=== PATIENT | female | born 1965 | race Caucasian/White ===

== ENCOUNTER → 2017-08-18 | Outpatient (CLI) | payer OTHER ==
[~2017-08-18] MED LIST: ACHD5005 PO; DULO60CA6 PO; EXEN10PE3 SQ; HYDR-34 PO; LEVO500T2 PO
--- NOTE | 2017-08-18 14:58 | Diagnostic Imaging Report ---
PROCEDURE: MRI lumbar spine. TECHNIQUE: Multiplanar, multisequence MRI of the lumbar spine was performed without contrast. INDICATION: Low back pain, low back injury. COMPARISON: No prior studies are available for comparison. FINDINGS: Curvature and alignment of the lumbar spine is normal. The vertebral body heights and marrow signal are normal. There is no compression fracture or geographic marrow lesion. Fairly normal height and signal intensity to the lumbar discs is seen apart from some degenerative disease in the lower thoracic spine as well as the L4-L5 level with some mild disc space narrowing and desiccation seen. L1-L2: No central canal or neuroforaminal stenosis is detected. L2-L3: Unremarkable. L3-L4: Unremarkable. L4-L5: There is minimal linear signal within the midline posterior annulus suggestive of annular tear. No focal disc protrusion is seen. There does appear to be some narrowing of the lateral recesses bilaterally. Neural foramina and central canal are patent. L5-S1: Central canal and neural foramina are widely patent. There is degenerative facet disease in the lower lumbar spine, greatest at L4-L5 and L5-S1 levels. Paraspinous tissues are unremarkable. IMPRESSION: Mild lower lumbar spondylosis and facet arthropathy with mild lateral recess narrowing bilaterally at the L4-L5 level as well as probable annular tear. No focal disc protrusion, central canal or neuroforaminal stenosis is seen. No acute compression fracture is detected. Dictated by: Dictated on workstation # [id number]
== END ==
LOC: RAD 13:39
PROVIDERS: ATTEND Nurse Practitioner
DX: S86.112A Strain of other muscle(s) and tendon(s) of posterior muscle group at lower leg level, left leg, initial encounter (principal); M47.816 Spondylosis without myelopathy or radiculopathy, lumbar region; M46.86 Other specified inflammatory spondylopathies, lumbar region
CPT/HCPCS: 72148